=== PATIENT | male | born 1995 | race African-American/Black ===

== ENCOUNTER 2023-05-19 19:13 | Emergency (ER) | payer SELFPAY ==
[~2023-05-19] VITALS: Ht 175.2 cm; Wt 59.0 kg
[2023-05-19 20:12] LABS: BILIRUBIN Negative (Negative); BLOOD Negative (Negative); CLARITY Clear (Clear); COLOR Yellow (Yellow); GLUCOSE Negative (Negative); KETONE Negative (Negative); LEUKO ESTERASE Negative (Negative); NITRITE Negative (Negative); PH 7.5 (4.5-8.0)
[2023-05-19 20:26] LABS: BACTERIA 1+; RBC 0-2 rbc/hpf (0-2)
[2023-05-19 20:27] LABS: MUCOUS 2+
[2023-05-19] MEDS ORDERED: VIBRAMYCIN100 MG PO (20:34)
== END 2023-05-19 21:08 | disposition home or self-care (01) ==
LOC: ED 19:13
PROVIDERS: Internal Medicine
DX: Z20.2 Contact with and (suspected) exposure to infections with a predominantly sexual mode of transmission (principal)